=== PATIENT | female | born 1955 | race Caucasian/White ===

== ENCOUNTER 2017-08-29 14:56 | Emergency (ER) | payer OTHER ==
[~2017-08-29] VITALS: Ht 170.2 cm; Wt 98.4 kg
[~2017-08-29 14:56] MED LIST: LANTUS100 UNITS/ SUB-Q; LIPITOR10 MG PO; NEURONTIN600 MG PO; NORCO 7.5-3251 EACH PO; PAXIL20 MG PO; PRILOSEC OTC20 MG PO; VALSARTAN-HCTZ1 EAC1 PO
[2017-08-29] MEDS ORDERED: TOUJEO SOL300 UNIT/1 SUB-Q (15:14)
[2017-08-29] MEDS ORDERED: VENTOLIN HFA18 GM INH (15:16)
[2017-08-29] MEDS ORDERED: DENAVIR5 GM (15:16)
[2017-08-29] MEDS ORDERED: TYLENOL325 MG PO (16:00)
[2017-08-29] MEDS ORDERED: ZITHROMAX250 MG PO (16:50)
== END 2017-08-29 17:09 | disposition home or self-care (01) ==
LOC: ED 14:56
DX: J40 Bronchitis, not specified as acute or chronic (principal); E11.9 Type 2 diabetes mellitus without complications; Z91.018 Allergy to other foods; Z91.040 Latex allergy status; Z88.1 Allergy status to other antibiotic agents; Z88.5 Allergy status to narcotic agent; Z79.899 Other long term (current) drug therapy; Z79.4 Long term (current) use of insulin
CPT/HCPCS: 71046; 80053; 81001; 83605; 85025; 87040; 96360; 96361; 99283; J7120

== ENCOUNTER 2022-03-03 04:08 | Emergency (ER) | payer OTHER ==
[~2022-03-03] VITALS: Ht 170.2 cm; Wt 89.8 kg
[~2022-03-03 04:08] MED LIST changes: +DENAVIR5 GM; +TOUJEO SOL300 UNIT/1 SUB-Q; +TYLENOL325 MG PO; +VENTOLIN HFA18 GM INH; +ZITHROMAX250 MG PO
[2022-03-03] MEDS ORDERED: ONDANSETRON ODT4 MG PO (04:24)
[2022-03-03] MEDS ORDERED: HYDROCHLOROTH12.5 MG PO (04:24)
[2022-03-03] MEDS ORDERED: DULOXETINE HCL30 MG PO (04:25)
[2022-03-03] MEDS ORDERED: METFORMIN HCL500 M1 PO (04:25)
[2022-03-03] MEDS ORDERED: DICLOFENAC SODI75 MG PO (04:25)
[2022-03-03] MEDS ORDERED: LOSARTAN POTAS100 MG PO (04:26)
[2022-03-03] MEDS ORDERED: VALACYCLOVIR500 MG PO (04:26)
[2022-03-03] MEDS ORDERED: B12 ACTIVE1000 MCG PO (04:28)
[2022-03-03] MEDS ORDERED: MELATONIN10 MG PO (04:28)
[2022-03-03] MEDS ORDERED: VITAMIN D350 MC3 PO (04:29)
--- NOTE | 2022-03-03 07:03 | EKG ---
[facility] [address] [facility] [place] [address] Signed Normal sinus rhythm Nonspecific T wave abnormality Prolonged QT Abnormal ECG No previous ECGs available Confirmed by LANETTE MOODY MD ([id number]) on 03/03/2022 7:03:22 AM Electronically Signed By: LANETTE MOODY MD 03/03/22 0703 PATIENT NAME: JOSEFINA STANLEY SCOT Electrocardiogram DATE OF : 57 PHYSICIAN: LANETTE MOODY MD REPORT #: [id number] REPORT IS CONFIDENTIAL AND NOT TO BE RELEASED WITHOUT AUTHORIZATION
== END 2022-03-03 09:40 | disposition home or self-care (01) ==
LOC: ED 04:08
DX: E11.65 Type 2 diabetes mellitus with hyperglycemia (principal); E87.6 Hypokalemia; E83.42 Hypomagnesemia; Z20.822 Contact with and (suspected) exposure to COVID-19; J45.909 Unspecified asthma, uncomplicated; I10 Essential (primary) hypertension; Z91.040 Latex allergy status; Z88.1 Allergy status to other antibiotic agents; Z88.5 Allergy status to narcotic agent; Z91.018 Allergy to other foods; Z79.84 Long term (current) use of oral hypoglycemic drugs; Z79.899 Other long term (current) drug therapy
CPT/HCPCS: 36415; 71045; 80053; 82010; 82803; 83735; 83880; 84484; 85025; 85379; 85610; 87502; 96365; 96366; 96375; 99285-25; A9270; C9803; J1790; J3475; J7030; U0003